=== PATIENT | female | born 1990 | race Two or more races ===

== ENCOUNTER 2021-06-18 03:43 | Emergency (ER) | payer OTHER ==
[~2021-06-18] VITALS: Ht 167.6 cm; Wt 75.9 kg
[2021-06-18 03:53] VITALS: BP 96/61
[2021-06-18] MEDS ORDERED: BACITRACIN 0.9 GM PACKET OINTMENT TP ONE (04:00)
== END 2021-06-18 04:38 ==
LOC: EMS 03:46
DX: S61.512A Laceration without foreign body of left wrist, initial encounter (principal); S10.91XA Abrasion of unspecified part of neck, initial encounter; W45.8XXA Other foreign body or object entering through skin, initial encounter; Y93.89 Activity, other specified; Y92.89 Other specified places as the place of occurrence of the external cause; Y99.8 Other external cause status
CPT/HCPCS: 99283